=== PATIENT | female | born 1980 | race African-American/Black ===

== ENCOUNTER 2023-01-02 09:51 | Emergency (ER) | payer OTHER ==
[2023-01-02 09:56] VITALS: BP 150/92; PULSE 89; RESP 20; TEMP 98.7; BMI 43.0
[2023-01-02] MEDS ORDERED: ACETAMINOPHEN 500 MG TABLET (FP) PO ONE (10:39)
[2023-01-02] MEDS ORDERED: LIDOCAINE 5% TOPICAL PATCH TP ONE ×2 (10:39)
[2023-01-02] MEDS ORDERED: LIDOCAINE 5% TOPICAL PATCH ONE (11:14)
[2023-01-02] MEDS ORDERED: ACETAMINOPHEN 500 MG TABLET (FP) ONE (11:15)
[2023-01-02] MEDS ORDERED: IBUPROFEN 600 MG TABLET (FP) PO ONE ×2 (11:46→11:57)
[2023-01-02 12:16] LABS: POTASSIUM 4.6 mmol/L (3.5-5.1)
[2023-01-02 12:20] LABS: CALCIUM 9.1 mg/dL (8.5-10.1)
[2023-01-02 12:21] LABS: ALBUMIN 3.5 g/dl (3.4-5.0); BLOOD UREA NITROGEN 15.8 mg/dL (7-18)
[2023-01-02 12:24] LABS: CREATININE 1.1 mg/dL (0.55-1.3)
[2023-01-02 12:25] LABS: BILIRUBIN,TOTAL 0.5 mg/dL (0.2-1); TOT PROT 7.4 g/dl (6.4-8.2)
[2023-01-02] MEDS ORDERED: LIDOCAINE PATCH REMOVAL MC ONE ×2 (22:00)
== END 2023-01-02 12:52 | disposition home or self-care (01) ==
LOC: JERFT 09:51
DX: M79.604 Pain in right leg (principal); M79.605 Pain in left leg; M79.652 Pain in left thigh; M79.651 Pain in right thigh
CPT/HCPCS: 36415; 80053; 82550; 82553; 84703; 99283-25